=== PATIENT | female | born 1985 | race Caucasian/White ===

== ENCOUNTER → 2024-10-07 | Day surgery (SDC) | payer BC ==
[~2024-10-07] MED LIST: Ketamine 200 MG/20 ML MDV ONE; Lidocaine 2% 20 ML MDV ONE; Midazolam 1 MG/ML 2 ML SDV ONE; Propofol 200 MG/20 ML SDV ONE; fentaNYL 50 MCG/ML SDV ONE
[2024-10-07] MEDS: Sodium Chloride 0.9% 250 ML IV SCH (10:32)
== END ==
LOC: CC.SDS 09:48
PROVIDERS: ATTEND Family Medicine
DX: K31.7 Polyp of stomach and duodenum (principal); K21.9 Gastro-esophageal reflux disease without esophagitis; K44.9 Diaphragmatic hernia without obstruction or gangrene; E78.5 Hyperlipidemia, unspecified; F41.1 Generalized anxiety disorder; Z79.899 Other long term (current) drug therapy; Z91.048 Other nonmedicinal substance allergy status
CPT/HCPCS: 00731; 36415; 84703; 87081; 99100; J2003; J2250; J2704; J3010; J3490